=== PATIENT | male | born 1980 | race Caucasian/White ===

== ENCOUNTER 2018-10-02 16:02 | Emergency (ER) | payer OTHER ==
[~2018-10-02] VITALS: Ht 177.8 cm; Wt 88.5 kg
--- NOTE | 2018-10-02 16:09 | NUR ---
Patient BIBA [facility], transferred to bed 4. RN evaluating patient at bedside.
[2018-10-02 16:12] VITALS: BP 163/116
[2018-10-02] MEDS ORDERED: AMLO2.5T PO (16:18)
[2018-10-02] MEDS ORDERED: HYDR-5122 PO (16:20)
[2018-10-02] MEDS ORDERED: CEPH-1019 PO (16:20)
[2018-10-02 16:30] LABS: BASOPHILS # (AUTO) 0.1 K/uL (0.00-0.22); BASOPHILS % (AUTO) 0.5 % (0.0-2.0); EOSINOPHILS # (AUTO) 0.3 K/uL (0-0.4); EOSINOPHILS % (AUTO) 2.8 % (0.0-4.0); HEMATOCRIT 35.6 % (36-52); HEMOGLOBIN 12.2 g/dL (12.0-18.0); LYMPHOCYTES % (AUTO) 36.6 % (20.5-51.1); MEAN CORPUSCULAR HEMOGLOBIN 30 pg (27-31); MEAN CORPUSCULAR HGB CONC 34 g/dL (33-37); MEAN CORPUSCULAR VOLUME 86.4 fL (80-94); MONOCYTES # (AUTO) 0.8 K/uL (0.8-1.0); NEUTROPHILS # (AUTO) 5.8 K/uL (1.8-7.7); NEUTROPHILS % (AUTO) 53.1 % (42.2-75.2); PLATELET COUNT (AUTO) 415 K/uL (140-450); RED BLOOD CELL COUNT(AUTO) 4.12 MIL/uL (4.20-6.10); RED CELL DISTRIBUTION WIDTH 13.2 % (11.6-13.7); WHITE BLOOD COUNT (AUTO) 10.9 K/uL (4.8-10.8)
--- NOTE | 2018-10-02 16:31 | NUR ---
X-RAY AT BEDSIDE
[2018-10-02 16:35] LABS: ANION GAP 15.1 (8-16); CARBON DIOXIDE 25.7 mmol/L (21-32); CREATININE 0.8 mg/dL (0.7-1.3); POTASSIUM 3.8 mmol/L (3.5-5.1)
--- NOTE | 2018-10-02 16:40 | NUR ---
BIB EMS FROM HOME C/O LEFT-SIDED CHEST TIGHTNESS RADIATES TO THE LEFT ARM WITH NUMBNESS ON LEFT ARM AND TINGLING ON LEFT FINGERS SINCE THIS AFTERNOON. PT HAD NASAL SEPTUM REPAIR ON 09/28/2018 MORNING. DENIES COUGH, N/V/D. SKIN IS PINK/WARM/DRY; AAOX4 WITH EVEN AND STEADY GAIT; LUNGS CLEAR BL; HR EVEN AND REGULAR; PT DENIES ANY FEVER, SOB, OR COUGH AT THIS TIME; PATIENT STATES PAIN OF 4/10 AT THIS TIME; VSS; PATIENT POSITIONED FOR COMFORT; HOB ELEVATED; BEDRAILS UP X2; BED DOWN. ER MD MADE AWARE OF PT STATUS. PT IS ON MONITOR.
[2018-10-02 16:47] LABS: ALBUMIN 4.1 g/dL (3.4-5.0); TOTAL BILIRUBIN 0.2 mg/dL (0.0-1.0)
[2018-10-02] MEDS ORDERED: ENALAPRILAT 2.5 MG/2 ML VIAL IVP ONE (17:00)
--- NOTE | 2018-10-02 18:05 | NUR ---
Dr. Montiel evaluating patient at bedside.
[2018-10-02] MEDS ORDERED: PHENYLEPHRINE 1% 15 ML BTL NS ONE (18:10)
[2018-10-02] MEDS ORDERED: PHENYLEPHRINE 0.5% 15 ML BTL NS ONE (18:28)
--- NOTE | 2018-10-02 18:43 | NUR ---
Dr. Montiel re-evaluating patient at bedside.
[2018-10-02 19:11] VITALS: BP 144/97
--- NOTE | 2018-10-02 19:11 | NUR ---
Patient discharged with v/s stable. Written and verbal after care instructions given and explained. Patient verbalized understanding. Wheel Chair Assisted with to car. All questions addressed prior to discharge. Advised to follow up with PMD.
== END 2018-10-02 19:11 | disposition home or self-care (01) ==
LOC: MED 16:02
DX: R07.89 Other chest pain (principal); I10 Essential (primary) hypertension; R04.0 Epistaxis; R42 Dizziness and giddiness; M79.601 Pain in right arm; Z79.899 Other long term (current) drug therapy; Z98.890 Other specified postprocedural states
CPT/HCPCS: 36415; 71045; 80053; 81002; 84484; 85025; 85379; 93005; 96374; 99284; J3490